=== PATIENT | male | born 1960 | race Caucasian/White ===

== ENCOUNTER 2017-10-23 03:06 | Inpatient (IN) | payer OTHER ==
[2017-10-23] VITALS (8 sets, daily range): BP systolic 89–128; BP diastolic 49–81
[~2017-10-23] VITALS: Ht 177.8 cm; Wt 69.4 kg
--- NOTE | 2017-10-23 03:40 | Emergency Room Report ---
History of Present Illness General Chief Complaint: Altered Level of Consciousness Source: EMS Present Illness HPI This is an approximately 63-year-old male brought in with altered mental status. The question of alcohol abuse. He is sleeping on the street with only is closed. He was shivering. Bystander when she on him and called 911. He was very cold. Unable to get any history. No trauma. He still has his money with him. But no ID. Allergies: Coded Allergies: UNABLE TO ASSESS (Unverified , 10/23/17) patient not answering questions Patient History Past Medical History: see triage record, old chart reviewed Past Surgical History: unable to obtain Pertinent Family History: unable to obtain Immunizations: other Reviewed Nursing Documentation: PMH: Agreed, PSxH: Agreed Nursing Documentation-PMH Past Medical History Deferred: Pt Cognitively Impaired Review of Systems All Other Systems: limited - Patient unable to give a history Physical Exam Vital Signs Date Time Temp Pulse Resp B/P (MAP) Pulse Ox O2 Delivery O2 Flow Rate FiO2 10/23/17 03:02 97.6 120 18 104/57 99 Room Air 97.5 vitals unremarkable except for tachycardia Sp02 EP Interpretation: reviewed, normal General Appearance: well appearing, no apparent distress, lethargic, other - Shivering Head: normocephalic, atraumatic Eyes: bilateral eye PERRL, bilateral eye EOMI ENT: hearing grossly normal, normal pharynx Neck: full range of motion, supple, no meningismus Respiratory: chest non-tender, lungs clear, normal breath sounds Cardiovascular #1: regular rate, rhythm, no murmur, tachycardia, irregularly irregular Gastrointestinal: normal bowel sounds, non tender, no mass, no organomegaly, no bruit, non-distended Musculoskeletal: back normal, normal range of motion Skin: warm/dry Medical Decision Making Diagnostic Impression: Primary Impression: Encephalopathy acute Additional Impressions: Atrial fibrillation with RVR ACS (acute coronary syndrome) ER Course This patient presents with an altered mental status. He has a pacemaker and EKG showed atrial fibrillation with RVR. Controlled with Cardizem. No evidence of heart failure. Trop . CT head is negative. He still very confused after warming up. 1 minute for further workup and possible placement. He has been to previous hospital based on tape martino on his arms. Has no idea or hospital bands however. Laboratory Tests Test 10/23/17 03:30 10/23/17 05:41 White Blood Count 3.8 K/UL (4.8-10.8) L Red Blood Count 4.10 M/UL (4.70-6.10) L Hemoglobin 12.8 G/DL (14.2-18.0) L Hematocrit 37.2 % (42.0-52.0) L Mean Corpuscular Volume 91 FL (80-99) Mean Corpuscular Hemoglobin 31.1 PG (27.0-31.0) H Mean Corpuscular Hemoglobin Concent 34.4 G/DL (32.0-36.0) Red Cell Distribution Width 14.3 % (11.6-14.8) Platelet Count 147 K/UL (150-450) L Mean Platelet Volume 8.1 FL (6.5-10.1) Neutrophils (%) (Auto) 59.5 % (45.0-75.0) Lymphocytes (%) (Auto) 29.5 % (20.0-45.0) Monocytes (%) (Auto) 9.5 % (1.0-10.0) Eosinophils (%) (Auto) 0.4 % (0.0-3.0) Basophils (%) (Auto) 1.1 % (0.0-2.0) Prothrombin Time 13.0 SEC (9.30-11.50) H Prothromb Time International Ratio 1.2 (0.9-1.1) H Sodium Level 140 MMOL/L (136-145) Potassium Level 3.3 MMOL/L (3.5-5.1) L Chloride Level 105 MMOL/L (98-107) Carbon Dioxide Level 24 MMOL/L (21-32) Anion Gap 12 mmol/L (5-15) Blood Urea Nitrogen 25 mg/dL (7-18) H Creatinine 1.5 MG/DL (0.55-1.30) H Estimat Glomerular Filtration Rate 47.0 mL/min (>60) Glucose Level 95 MG/DL (74-106) Calcium Level 8.6 MG/DL (8.5-10.1) Troponin I 0.440 ng/mL (0.000-0.056) Serum Alcohol < 3 mg/dL Urine Color Brown Urine Appearance Clear Urine pH 6 (4.5-8.0) Urine Specific [place] 1.020 (1.005-1.035) Urine Protein 1+ (NEGATIVE) H Urine Glucose (UA) Negative (NEGATIVE) Urine Ketones 1+ (NEGATIVE) H Urine Occult Blood Negative (NEGATIVE) Urine Nitrite Negative (NEGATIVE) Urine Bilirubin Negative (NEGATIVE) Urine Urobilinogen 4 MG/DL (0.0-1.0) H Urine Leukocyte Esterase Negative (NEGATIVE) Urine RBC 0-2 /HPF (0 - 0) H Urine WBC 0-2 /HPF (0 - 0) Urine Squamous Epithelial Cells Occasional /LPF Urine Bacteria Occasional /HPF (NONE) Urine Opiates Screen Negative (NEGATIVE) Urine Barbiturates Screen Negative (NEGATIVE) Phencyclidine (PCP) Screen Negative (NEGATIVE) Urine Amphetamines Screen Negative (NEGATIVE) Urine Benzodiazepines Screen Negative (NEGATIVE) Urine Cocaine Screen Negative (NEGATIVE) Urine Marijuana (THC) Screen Negative (NEGATIVE) Lab Results Impression labs with elevated trop EKG Diagnostic Results Rate: tachycardiac Rhythm: other - A. fib ST Segments: other - Nonspecific changes Rhythm Strip Diag. Results Rhythm Strip Time: 05:41 EP Interpretation: yes Rate: 111 Rhythm: no PVC's, no ectopy, other - A. fib Chest X-Ray Diagnostic Results Chest X-Ray Diagnostic Results : Chest X-Ray Ordered: Yes # of Views/Limited/Complete: 1 View Indication: Chest Pain EP Interpretation: Yes Interpretation: no consolidation, no effusion, no pneumothorax, no acute cardiopulmonary disease, other - cardiomegaly Impression: No acute disease Electronically Signed by: Rafi Kelly MD CT/MRI/US Diagnostic Results CT/MRI/US Diagnostic Results : Imaging Test Ordered: CT head Impression negative per radiologist Last Vital Signs Date Time Temp Pulse Resp B/P (MAP) Pulse Ox O2 Delivery O2 Flow Rate FiO2 10/23/17 03:15 97.5 18 104/57 99 Room Air 97.5 10/23/17 03:02 120 Status: improved Disposition: ADMITTED INPATIENT Condition: Serious Scripts Unable to Obtain Active Prescriptions or Reported Meds RAFI KELLY M.D. Oct 23, 2017 03:40
[2017-10-23 03:46] LABS: BASOPHILS % (AUTO) 1.1 % (0.0-2.0); EOSINOPHILS % (AUTO) 0.4 % (0.0-3.0); HEMATOCRIT 37.2 % (42.0-52.0); HEMOGLOBIN 12.8 G/DL (14.2-18.0); LYMPHOCYTES % (AUTO) 29.5 % (20.0-45.0); MEAN CORPUSCULAR VOLUME 91 FL (80-99); MONOCYTES % (AUTO) 9.5 % (1.0-10.0); NEUTROPHILS % (AUTO) 59.5 % (45.0-75.0); PLATELET COUNT 147 K/UL (150-450); RED CELL DISTRIBUTION WIDTH 14.3 % (11.6-14.8); WHITE BLOOD COUNT 3.8 K/UL (4.8-10.8)
[2017-10-23 03:55] LABS: ANION GAP 12 mmol/L (5-15); BLOOD UREA NITROGEN 25 mg/dL (7-18); CALCIUM 8.6 MG/DL (8.5-10.1); CARBON DIOXIDE 24 MMOL/L (21-32); CHLORIDE 105 MMOL/L (98-107); CREATININE 1.5 MG/DL (0.55-1.30); POTASSIUM 3.3 MMOL/L (3.5-5.1); SODIUM 140 MMOL/L (136-145)
[2017-10-23] MEDS ORDERED: Haloperidol 5mg/ml Inj IM ONE (05:15)
[2017-10-23] MEDS ORDERED: dilTIAZem HCl 25mg/5ml Inj IVP ONE ×2 (05:45→06:30)
[2017-10-23 05:57] LABS: BILIRUBIN, URINE NEGATIVE (NEGATIVE); COLOR,URINE BROWN; GLUCOSE, URINE (UA) NEGATIVE (NEGATIVE); KETONES,URINE 1+ (NEGATIVE); LEUKOCYTE ESTERASE ,URINE NEGATIVE (NEGATIVE); NITRITE,URINE NEGATIVE (NEGATIVE); PH,URINE 6 (4.5-8.0); PROTEIN,URINE 1+ (NEGATIVE); UROBILINOGEN,URINE 4 MG/DL (0.0-1.0)
[2017-10-23 05:57] LABS: INR 1.2 (0.9-1.1)
[2017-10-23 05:58] LABS: APPEARANCE,URINE CLEAR
[2017-10-23] MEDS ORDERED: Aspirin Baby 81mg ORAL ONE (06:30)
[2017-10-23] MEDS ORDERED: Enoxaparin 100mg Inj SUBQ ONE (06:30)
[2017-10-23] MEDS ORDERED: NS 250 ML IVPB ONE (07:15)
[2017-10-23] MEDS ORDERED: Sodium Chloride 500ML 250 ML IV ONE (07:45)
--- NOTE | 2017-10-23 07:52 | Diagnostic Imaging Report ---
Indication: Altered mental status Technique: Continuous helical CT scanning of the head was performed without intravenous contrast material. Axial and coronal 5 mm sections were generated. Dose: Total Dose Length Product - DLP [address] Dose Index - CTDIvol(s) 70.38 mGy. Automated exposure control was utilized for dose reduction. Comparison: None Findings: The ventricles are normal. There is minimal prominence of cortical sulci. Focal area of low density is noted in the left thalamus. There is no shift of midline structures. No abnormal extra-axial fluid collections are noted. There is no evidence of intracerebral bleeding. No other abnormal high or low density areas are noted within the brain. Has been cataract surgery on the left side. Impression: Minimal cortical atrophy. Old lacunar infarct in the left thalamus. Evidence of left cataract surgery. No acute abnormality. The above report is concordant with preliminary reading by [facility] with nonacute difference.. The CT scanner at [facility] is accredited by the [employer] and the scans are performed using protocols designed to limit radiation exposure to as low as reasonably achievable to attain images of sufficient resolution adequate for diagnostic evaluation.
[2017-10-23] MEDS ORDERED: Potassium Chloride 10 MEQ in NS 110 ML IVPB SCH (08:00)
[2017-10-23] MEDS ORDERED: Digoxin 0.5mg/2ml Inj IVP ONE (08:00)
--- NOTE | 2017-10-23 08:32 | Diagnostic Imaging Report ---
Indication: Chest pain Technique: XRAY Chest 1v Comparison:None Findings: The heart appears enlarged. There is a pacemaker. Pulmonary vascularity is mildly prominent. No pleural fluid. Osseous structures are unremarkable. Impression: Pacemaker. Cardiomegaly. Mild prominence of pulmonary vascularity. Possibility of mild congestive heart failure should be considered.
--- NOTE | 2017-10-23 08:49 | History & Physical ---
History and Physical History & Physicial 63 year old male found on the street. noted to have sinus tachycardia PMH unknown MEDS unknown ALLERGIES unknown PHYSICAL WDWN NAD clear breath sounds bilaterally without rhonchi or wheeze S1S2RR tachy without MRG NABS nontender no HSM no CCE nonfocal Laboratory Tests Test 10/23/17 03:30 10/23/17 05:41 White Blood Count 3.8 K/UL (4.8-10.8) L Red Blood Count 4.10 M/UL (4.70-6.10) L Hemoglobin 12.8 G/DL (14.2-18.0) L Hematocrit 37.2 % (42.0-52.0) L Mean Corpuscular Volume 91 FL (80-99) Mean Corpuscular Hemoglobin 31.1 PG (27.0-31.0) H Mean Corpuscular Hemoglobin Concent 34.4 G/DL (32.0-36.0) Red Cell Distribution Width 14.3 % (11.6-14.8) Platelet Count 147 K/UL (150-450) L Mean Platelet Volume 8.1 FL (6.5-10.1) Neutrophils (%) (Auto) 59.5 % (45.0-75.0) Lymphocytes (%) (Auto) 29.5 % (20.0-45.0) Monocytes (%) (Auto) 9.5 % (1.0-10.0) Eosinophils (%) (Auto) 0.4 % (0.0-3.0) Basophils (%) (Auto) 1.1 % (0.0-2.0) Prothrombin Time 13.0 SEC (9.30-11.50) H Prothromb Time International Ratio 1.2 (0.9-1.1) H Sodium Level 140 MMOL/L (136-145) Potassium Level 3.3 MMOL/L (3.5-5.1) L Chloride Level 105 MMOL/L (98-107) Carbon Dioxide Level 24 MMOL/L (21-32) Anion Gap 12 mmol/L (5-15) Blood Urea Nitrogen 25 mg/dL (7-18) H Creatinine 1.5 MG/DL (0.55-1.30) H Estimat Glomerular Filtration Rate 47.0 mL/min (>60) Glucose Level 95 MG/DL (74-106) Calcium Level 8.6 MG/DL (8.5-10.1) Troponin I 0.440 ng/mL (0.000-0.056) Serum Alcohol < 3 mg/dL Urine Color Brown Urine Appearance Clear Urine pH 6 (4.5-8.0) Urine Specific [place] 1.020 (1.005-1.035) Urine Protein 1+ (NEGATIVE) H Urine Glucose (UA) Negative (NEGATIVE) Urine Ketones 1+ (NEGATIVE) H Urine Occult Blood Negative (NEGATIVE) Urine Nitrite Negative (NEGATIVE) Urine Bilirubin Negative (NEGATIVE) Urine Urobilinogen 4 MG/DL (0.0-1.0) H Urine Leukocyte Esterase Negative (NEGATIVE) Urine RBC 0-2 /HPF (0 - 0) H Urine WBC 0-2 /HPF (0 - 0) Urine Squamous Epithelial Cells Occasional /LPF Urine Bacteria Occasional /HPF (NONE) Urine Opiates Screen Negative (NEGATIVE) Urine Barbiturates Screen Negative (NEGATIVE) Phencyclidine (PCP) Screen Negative (NEGATIVE) Urine Amphetamines Screen Negative (NEGATIVE) Urine Benzodiazepines Screen Negative (NEGATIVE) Urine Cocaine Screen Negative (NEGATIVE) Urine Marijuana (THC) Screen Negative (NEGATIVE) IMPRESSION lacunar infarcts acute encephalopathy PLAN PT evaluation hydration dc planning FRANCINE SANDOVAL Oct 23, 2017 08:49
[2017-10-23] MEDS: dilTIAZem HCl 30mg tab ORAL SCH (19:57)
[2017-10-23] MEDS: Heparin 5000 units/ml inj SUBQ SCH (21:00)
[2017-10-24] VITALS: BP 117/65
[2017-10-24 04:00] VITALS: BP 129/89
--- NOTE | 2017-10-24 07:35 | General Progress Note ---
Assessment/Plan Assessment/Plan acute encephalopathy afib with RVR elevated troponin PLAN awaiting further history patient recently in the hospital need further medical history and med list prior to safe discharge Subjective Allergies: Coded Allergies: UNABLE TO ASSESS (Unverified , 10/23/17) patient not answering questions Subjective not fully able to give history Objective Last 24 Hour Vital Signs Date Time Temp Pulse Resp B/P (MAP) Pulse Ox O2 Delivery O2 Flow Rate FiO2 10/24/17 04:00 128 10/24/17 04:00 97.3 90 20 129/89 98 Room Air 97.3 10/24/17 00:00 98.2 65 20 117/65 99 Room Air 98.2 10/24/17 00:00 81 10/23/17 20:00 106 10/23/17 20:00 98.9 104 21 119/81 99 Room Air 98.9 10/23/17 19:57 104 119/81 10/23/17 16:00 97.5 109 20 128/74 100 Room Air 97.5 10/23/17 16:00 162 10/23/17 12:00 102 20 107/76 99 Room Air 10/23/17 12:00 92 10/23/17 09:30 81 18 92/71 100 Room Air 10/23/17 09:26 75 10/23/17 09:24 97.5 99 14 106/54 100 Room Air 97.5 10/23/17 07:52 99 14 106/54 100 Room Air Intake and Output 10/23/17 10/24/17 19:00 07:00 Intake Total 490 ml 675 ml Balance 490 ml 675 ml Intake Oral 490 ml IV Total 675 ml Height (Feet): 5 Height (Inches): 10.00 Weight (Pounds): 153 Objective WDWN NAD clear breath sounds bilaterally without rhonchi or wheeze S1S2 iRR intermittently tachy without MRG NABS nontender no HSM no CCE nonfocal FRANCINE SANDOVAL Oct 24, 2017 07:35
[2017-10-24 08:00] VITALS: BP 148/97
[2017-10-24 08:15] LABS: BASOPHILS % (AUTO) 1.3 % (0.0-2.0); EOSINOPHILS % (AUTO) 2.5 % (0.0-3.0); HEMATOCRIT 34.3 % (42.0-52.0); HEMOGLOBIN 11.9 G/DL (14.2-18.0); MEAN CORPUSCULAR VOLUME 92 FL (80-99); MONOCYTES % (AUTO) 16.3 % (1.0-10.0); PLATELET COUNT 145 K/UL (150-450); RED BLOOD COUNT 3.74 M/UL (4.70-6.10); RED CELL DISTRIBUTION WIDTH 14.3 % (11.6-14.8); WHITE BLOOD COUNT 3.8 K/UL (4.8-10.8)
[2017-10-24 08:22] LABS: ANION GAP 7 mmol/L (5-15); BLOOD UREA NITROGEN 13 mg/dL (7-18); CALCIUM 8.2 MG/DL (8.5-10.1); CARBON DIOXIDE 25 MMOL/L (21-32); CHLORIDE 110 MMOL/L (98-107); CREATININE 1.2 MG/DL (0.55-1.30); POTASSIUM 3.2 MMOL/L (3.5-5.1); SODIUM 142 MMOL/L (136-145)
[2017-10-24] MEDS: Heparin 5000 units/ml inj SUBQ SCH ×2 (09:00→20:51)
[2017-10-24] MEDS: dilTIAZem HCl 30mg tab ORAL SCH ×3 (09:18→17:42)
[2017-10-24 12:00] VITALS: BP 132/86
--- NOTE | 2017-10-24 14:42 | Cardiology Report ---
APPROVED REPORT EXAM: Two-dimensional and M-mode echocardiogram with Doppler and color Doppler. INDICATION ALTERED LOC M-Mode DIMENSIONS IVSd1.2 (0.7-1.1cm)Left Atrium (MM)4.2 (1.6-4.0cm) LVDd4.2 (3.5-5.6cm)Aortic Root4.2 (2.0-3.7cm) PWd1.4 (0.7-1.1cm)Aortic Cusp Exc.2.4 (1.5-2.0cm) IVSs1.6 cm LVDs3.3 (2.5-4.0cm) PWs1.4 cm Mild left ventricular chamber size enlargement . Global left ventricular hypokinesis. Left ventricular ejection fraction estimated to be 30-35 %. Mild left ventricular hypertrophy. No evidence of pericardial effusion. Mild bi-Atrial enlargements . Right ventricular chamber sizes is within normal limits. Focal aortic valve sclerosis with adequate cusp excursion. Thickened mitral valve leaflets with normal excursion. Mitral annulus and aortic root calcification. Pulmonic valve not well visualized. Normal tricuspid valve structure. IVC dilated at 3.6 cm and non-collapsing with respiration suggestive of increased RA pressure. Pacemaker wire present in the right side chambers. A color flow and spectral Doppler study was performed and revealed: Mild aortic insufficiency. Mild to moderate mitral regurgitation . Mild tricuspid regurgitation. Tricuspid systolic velocities suggests peak right ventricular systolic pressure of 70 mmHg, consistent with severe pulmonary hypertension. No Pulmonic regurgitation present
[2017-10-24 16:00] VITALS: BP 128/84
--- NOTE | 2017-10-24 16:48 | History & Physical ---
History and Physical History & Physicial Patient seen and examined. Full H&P to follow. CT head negative. LP negative. Assessment: - septic shock with multiorgan failure - altered mental status - pediculosis capitus - UTI - homelessness Plan: ID and cardiology consulted. Pulmonology consulted for ICU management. continue IV abx f/u blood cultures, urine culture. continue IVF, maintain MAP > 65. pressors/ albumin prn. Transfer to ICU. keep in isolation. Deandra Stern N.P. Oct 24, 2017 16:47
[2017-10-24 20:00] VITALS: BP 114/74
[2017-10-25] VITALS: BP 118/74
[2017-10-25 04:00] VITALS: BP 130/87
[2017-10-25 08:00] VITALS: BP 139/83
--- NOTE | 2017-10-25 08:04 | General Progress Note ---
Assessment/Plan Assessment/Plan acute encephalopathy afib with RVR elevated troponin cardiomyopathy pacemaker PLAN awaiting further history and details still not sure as to status patient recently in the hospital need further medical history and med list prior to safe discharge Subjective Allergies: Coded Allergies: UNABLE TO ASSESS (Unverified , 10/23/17) patient not answering questions Subjective still confused Objective Last 24 Hour Vital Signs Date Time Temp Pulse Resp B/P (MAP) Pulse Ox O2 Delivery O2 Flow Rate FiO2 10/25/17 04:00 97.7 84 20 130/87 95 Room Air 97.7 10/25/17 04:00 81 10/25/17 00:00 78 10/25/17 00:00 97.7 78 20 118/74 95 Room Air 97.7 10/24/17 20:00 77 10/24/17 20:00 97.9 66 18 114/74 98 Room Air 97.9 10/24/17 17:42 91 128/84 10/24/17 16:00 111 10/24/17 16:00 96.9 91 20 128/84 99 Room Air 96.9 10/24/17 12:17 80 132/86 10/24/17 12:00 97.0 80 20 132/86 100 Room Air 97.0 10/24/17 12:00 91 10/24/17 09:18 129 148/97 Intake and Output 10/24/17 10/25/17 19:00 07:00 Intake Total 1630 ml 1175 ml Output Total 525 ml Balance 1630 ml 650 ml Intake Oral 730 ml 500 ml IV Total 900 ml 675 ml Output Urine Total 525 ml # Voids 5 Height (Feet): 5 Height (Inches): 10.00 Weight (Pounds): 153 Objective WDWN NAD clear breath sounds bilaterally without rhonchi or wheeze S1S2 iRR intermittently tachy without MRG NABS nontender no HSM no CCE nonfocal FRANCINE SANDOVAL Oct 25, 2017 08:03
[2017-10-25] MEDS: dilTIAZem HCl 30mg tab ORAL SCH ×3 (08:57→17:20)
[2017-10-25] MEDS: Heparin 5000 units/ml inj SUBQ SCH ×2 (08:57→21:32)
[2017-10-25 12:00] VITALS: BP 132/76
--- NOTE | 2017-10-25 15:49 | Wound Care Consultation ---
Wound Assessment Wound Assessment : Wound Number: 1 Wound Present on Admission: Yes New Wound: No Status Change of Wound: No Wound Location Body Site Modif: right, lateral Wound Location Body Site: malleolus/ankle Wound Type: other - open wound etiology unknown Demi Test: Does not Demi Wound Thickness: Partial Thickness Wound Length: 1.0 Wound Width: 1.0 Wound Depth: 0.2 Percent of Wound [place]/Red: 50 Percent of Wound Purple/Maroon: 50 Wound Drainage Description: Serosanguineous Wound Drainage Amount: Scant Wound Drainage Odor: None/Absent Tissue Surrounding Wound: Erythemic Wound General Appearance: Reddened Wound Comment #1 right lateral malleolus open wound -etiology unknown. #2 right buttock intact nodule. Recommendation. -Local wound care as ordered. -Offload affected site. -Avoid shear and friction. -Turn and reposition. -Keep clean and dry. -Asses for any skin changes to nodule. -Assess and follow up accordingly if any further change of condition is noted. patient stated does not know where wound on right ankle came from its been there for many years. MOE TERRY Oct 25, 2017 15:49
[2017-10-25 16:00] VITALS: BP 125/81
[2017-10-25 20:00] VITALS: BP 122/76
[2017-10-26] VITALS: BP 118/77
[2017-10-26 04:00] VITALS: BP 134/90
--- NOTE | 2017-10-26 07:54 | General Progress Note ---
Assessment/Plan Assessment/Plan acute encephalopathy afib with RVR elevated troponin cardiomyopathy pacemaker cardiomyopathy PLAN neuro called not safe for anticoag add aspirin only patient recently in the hospital CM to assist with disposition Subjective Allergies: Coded Allergies: UNABLE TO ASSESS (Unverified , 10/23/17) patient not answering questions Subjective somewhat confused Objective Last 24 Hour Vital Signs Date Time Temp Pulse Resp B/P (MAP) Pulse Ox O2 Delivery O2 Flow Rate FiO2 10/26/17 04:00 97.9 83 18 134/90 97 Room Air 97.9 10/26/17 04:00 93 10/26/17 00:00 70 10/26/17 00:00 97.0 72 19 118/77 96 Room Air 97.0 10/25/17 20:00 85 10/25/17 20:00 97.5 89 18 122/76 98 Room Air 97.5 10/25/17 17:20 80 125/81 10/25/17 16:00 97.0 80 19 125/81 97 Room Air 97.0 10/25/17 16:00 88 10/25/17 12:35 98 132/76 10/25/17 12:00 97.5 98 22 132/76 97 Room Air 97.5 10/25/17 12:00 119 10/25/17 08:57 53 139/83 10/25/17 08:00 145 10/25/17 08:00 97.8 53 21 139/83 97 Room Air 97.8 Intake and Output 10/25/17 10/26/17 19:00 07:00 Intake Total 1700 ml 825 ml Output Total 700 ml 500 ml Balance 1000 ml 325 ml Intake Oral 1100 ml IV Total 600 ml 825 ml Output Urine Total 700 ml 500 ml # Voids 2 Labs Test 10/24/17 07:20 White Blood Count 3.8 K/UL (4.8-10.8) Red Blood Count 3.74 M/UL (4.70-6.10) Hemoglobin 11.9 G/DL (14.2-18.0) Hematocrit 34.3 % (42.0-52.0) Mean Corpuscular Volume 92 FL (80-99) Mean Corpuscular Hemoglobin 31.9 PG (27.0-31.0) Mean Corpuscular Hemoglobin Concent 34.8 G/DL (32.0-36.0) Red Cell Distribution Width 14.3 % (11.6-14.8) Platelet Count 145 K/UL (150-450) Mean Platelet Volume 9.3 FL (6.5-10.1) Neutrophils (%) (Auto) 29.0 % (45.0-75.0) Lymphocytes (%) (Auto) 51.0 % (20.0-45.0) Monocytes (%) (Auto) 16.3 % (1.0-10.0) Eosinophils (%) (Auto) 2.5 % (0.0-3.0) Basophils (%) (Auto) 1.3 % (0.0-2.0) Sodium Level 142 MMOL/L (136-145) Potassium Level 3.2 MMOL/L (3.5-5.1) Chloride Level 110 MMOL/L (98-107) Carbon Dioxide Level 25 MMOL/L (21-32) Anion Gap 7 mmol/L (5-15) Blood Urea Nitrogen 13 mg/dL (7-18) Creatinine 1.2 MG/DL (0.55-1.30) Estimat Glomerular Filtration Rate > 60 mL/min (>60) Glucose Level 80 MG/DL (74-106) Calcium Level 8.2 MG/DL (8.5-10.1) Troponin I 0.439 ng/mL (0.000-0.056) Height (Feet): 5 Height (Inches): 10.00 Weight (Pounds): 153 Objective WDWN NAD clear breath sounds bilaterally without rhonchi or wheeze S1S2 iRR without MRG NABS nontender no HSM no CCE nonfocal FRANCINE SANDOVAL Oct 26, 2017 07:54
[2017-10-26 08:00] VITALS: BP 135/73
[2017-10-26] MEDS: Aspirin EC 81mg tab ORAL SCH (09:05)
[2017-10-26] MEDS: Heparin 5000 units/ml inj SUBQ SCH ×2 (09:07→20:21)
[2017-10-26] MEDS: dilTIAZem HCl 30mg tab ORAL SCH ×3 (09:08→17:38)
[2017-10-26 09:42] LABS: ANION GAP 6 mmol/L (5-15); BLOOD UREA NITROGEN 12 mg/dL (7-18); CALCIUM 8.7 MG/DL (8.5-10.1); CARBON DIOXIDE 27 MMOL/L (21-32); CHLORIDE 109 MMOL/L (98-107); CREATININE 1.1 MG/DL (0.55-1.30); POTASSIUM 3.4 MMOL/L (3.5-5.1); SODIUM 142 MMOL/L (136-145)
[2017-10-26 12:00] VITALS: BP 117/77
[2017-10-26] MEDS: Digoxin 0.125mg tab ORAL SCH ×2 (15:57→17:38)
[2017-10-26 16:00] VITALS: BP 147/76
--- NOTE | 2017-10-26 19:45 | Progress Note ---
DATE: 10/26/2017 SUBJECTIVE: The patient is more alert and oriented, however, he is still confused, disorganized, and has cognitive impairment. The patient is still disorganized and delusional. MENTAL STATUS EXAMINATION: The patient is alert and oriented times self, place, and situation. Mood is dysphoric. Affect is constricted. Congruent with mood. Thought process is concrete. Thought content, no suicidal or homicidal ideations. ASSESSMENT: 1. Alcohol dependence. 2. Agitation. PLAN: 1. The patient will be continued on Valium p.r.n. 2. 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 3. The patient is not in an imminent danger to self or others. Not meeting the criteria for 5150 or psychiatric hospitalization. 4. I have dictated History and Physical. Unfortunately, it is not available. Medical records researching. Terrence Rosario M.D. DR: MUSTAPHA JOB#: [id number] CC:
[2017-10-26 20:00] VITALS: BP 113/75
--- NOTE | 2017-10-26 20:29 | Cardiology Progress Note ---
Assessment/Plan Assessment/Plan The patient is seen and examined, full consult note will be dictated shortly. Objective Last 24 Hour Vital Signs Date Time Temp Pulse Resp B/P (MAP) Pulse Ox O2 Delivery O2 Flow Rate FiO2 10/26/17 17:38 119 10/26/17 17:38 119 117/77 10/26/17 16:00 75 10/26/17 16:00 96.8 114 20 147/76 Room Air 96.8 10/26/17 15:57 114 10/26/17 13:31 91 117/77 10/26/17 12:00 97.2 91 20 117/77 100 Room Air 97.2 10/26/17 12:00 150 10/26/17 09:08 84 135/73 10/26/17 08:00 98.4 84 20 135/73 97 Room Air 98.4 10/26/17 08:00 108 10/26/17 04:00 97.9 83 18 134/90 97 Room Air 97.9 10/26/17 04:00 93 10/26/17 00:00 70 10/26/17 00:00 97.0 72 19 118/77 96 Room Air 97.0 Intake and Output 10/25/17 10/26/17 19:00 07:00 Intake Total 1700 ml 825 ml Output Total 700 ml 500 ml Balance 1000 ml 325 ml Intake Oral 1100 ml IV Total 600 ml 825 ml Output Urine Total 700 ml 500 ml # Voids 2 Laboratory Tests Test 10/26/17 08:50 Sodium Level 142 MMOL/L (136-145) Potassium Level 3.4 MMOL/L (3.5-5.1) L Chloride Level 109 MMOL/L (98-107) H Carbon Dioxide Level 27 MMOL/L (21-32) Anion Gap 6 mmol/L (5-15) Blood Urea Nitrogen 12 mg/dL (7-18) Creatinine 1.1 MG/DL (0.55-1.30) Estimat Glomerular Filtration Rate > 60 mL/min (>60) Glucose Level 150 MG/DL (74-106) H Calcium Level 8.7 MG/DL (8.5-10.1) Troponin I 0.355 ng/mL (0.000-0.056) DEEDEE CASTANON Oct 26, 2017 20:29
[2017-10-27] VITALS: BP 113/79
[2017-10-27 04:00] VITALS: BP 141/96
[2017-10-27] MEDS: dilTIAZem HCl 60mg tab ORAL SCH ×3 (06:22→22:05)
--- NOTE | 2017-10-27 06:53 | General Progress Note ---
Assessment/Plan Assessment/Plan acute encephalopathy afib with RVR elevated troponin cardiomyopathy pacemaker cardiomyopathy PLAN neuro called not safe for anticoag Aspirin only CM to assist with disposition Subjective Allergies: Coded Allergies: UNABLE TO ASSESS (Unverified , 10/23/17) patient not answering questions Subjective still confused Objective Last 24 Hour Vital Signs Date Time Temp Pulse Resp B/P (MAP) Pulse Ox O2 Delivery O2 Flow Rate FiO2 10/27/17 06:22 70 141/96 10/27/17 04:00 70 10/27/17 04:00 98.2 76 21 141/96 98 98.2 10/27/17 00:00 98.1 77 20 113/79 97 Room Air 98.1 10/27/17 00:00 98 10/26/17 20:00 97.7 78 20 113/75 100 Room Air 97.7 10/26/17 20:00 91 10/26/17 17:38 119 10/26/17 17:38 119 117/77 10/26/17 16:00 75 10/26/17 16:00 96.8 114 20 147/76 Room Air 96.8 10/26/17 15:57 114 10/26/17 13:31 91 117/77 10/26/17 12:00 97.2 91 20 117/77 100 Room Air 97.2 10/26/17 12:00 150 10/26/17 09:08 84 135/73 10/26/17 08:00 98.4 84 20 135/73 97 Room Air 98.4 10/26/17 08:00 108 Intake and Output 10/26/17 10/27/17 19:00 07:00 Intake Total 880 ml 220 ml Output Total 900 ml 1300 ml Balance -20 ml -1080 ml Intake Oral 880 ml 220 ml Output Urine Total 900 ml 1300 ml Laboratory Tests 10/26/17 08:50: Sodium Level 142, Potassium Level 3.4L, Chloride Level 109H, Carbon Dioxide Level 27, Anion Gap 6, Blood Urea Nitrogen 12, Creatinine 1.1, Estimat Glomerular Filtration Rate > 60, Glucose Level 150H, Calcium Level 8.7, Troponin I 0.355H Height (Feet): 5 Height (Inches): 10.00 Weight (Pounds): 153 Objective WDWN NAD clear breath sounds bilaterally without rhonchi or wheeze S1S2 iRR without MRG NABS nontender no HSM no CCE nonfocal FRANCINE SANDOVAL Oct 27, 2017 06:53
[2017-10-27 08:00] VITALS: BP 101/57
[2017-10-27] MEDS: Aspirin EC 81mg tab ORAL SCH (10:02)
[2017-10-27] MEDS: Heparin 5000 units/ml inj SUBQ SCH ×2 (10:07→22:04)
--- NOTE | 2017-10-27 11:46 | Neurology Progress Note ---
Objective Physical Exam Last Vital Signs Date Time Temp Pulse Resp B/P (MAP) Pulse Ox O2 Delivery O2 Flow Rate FiO2 10/27/17 08:00 97.1 59 18 101/57 99 97.1 10/27/17 00:00 Room Air Impression/Recommendations Problems: (1) vertigo, confusion, r/o tia r/o labyrintitis (2) Atrial fibrillation with RVR Status: stable Recommendations #[id number] KRISTI GARCIA Oct 27, 2017 11:46
[2017-10-27 12:00] VITALS: BP 121/72
[2017-10-27 12:58] LABS: ALANINE AMINOTRANSFERASE 34 U/L (12-78); ALBUMIN/GLOBULIN RATIO 0.6 (1.0-2.7); ALKALINE PHOSPHATASE 93 U/L (46-116); CALCIUM 8.3 MG/DL (8.5-10.1); CHLORIDE 109 MMOL/L (98-107); HDL CHOLESTEROL 44 MG/DL (40-60); SODIUM 142 MMOL/L (136-145)
[2017-10-27 13:00] LABS: ANION GAP 6 mmol/L (5-15); ASPARTATE AMINO TRANSFERASE 48 U/L (15-37); BILIRUBIN,TOTAL 1.3 MG/DL (0.2-1.0); BLOOD UREA NITROGEN 12 mg/dL (7-18); CARBON DIOXIDE 27 MMOL/L (21-32); CHOLESTEROL 122 MG/DL (< 200); CREATININE 1.1 MG/DL (0.55-1.30); POTASSIUM 3.8 MMOL/L (3.5-5.1); TRIGLYCERIDES < 15 MG/DL (30-150)
[2017-10-27 13:13] LABS: BILIRUBIN,DIRECT 0.7 MG/DL (0.0-0.3)
[2017-10-27] MEDS: Thiamine 100mg tab ORAL SCH (13:51)
[2017-10-27 16:00] VITALS: BP 103/66
--- NOTE | 2017-10-27 18:32 | Consultation ---
DATE OF CONSULTATION: 10/27/2017 NEUROLOGICAL CONSULTATION CONSULTING PHYSICIAN: Angel Barrios M.D. REQUESTING PHYSICIAN: Jeffrey Ac M.D. HISTORY OF PRESENT ILLNESS: This 56-year-old man seen in neurological consultation to evaluate a new onset of changes in mental status. 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 Did know what the time and direction. He estimated being in this condition roughly seven hours. On admission, there was a description that he is sleeping on the street, he was shivering. He was found by a bystander confused, and he called 911. The patient felt very very cold. His vital signs included temperature of 97.6 degrees, heart rate of 120, blood pressure 104/57. There was no evidence of trauma noted. He was confused. EKG revealed presence of atrial fibrillation with rapid ventricular rate. This was controlled with Cardizem. There was no evidence of CHF on troponins. He was "very confused." There were tape martino on his arms, evidence of being recent hospitalization. His initial workup included lab work with evidence of anemia, WBC 3.8, hemoglobin 12.8, hematocrit 37.2, and platelet 147,000. Coagulation panel with INR 1.2. Urinalysis, 1+ ketones and 1+ protein. Toxicology panel was negative. Chemistry panel with BUN of 25 and creatinine 1.5 and potassium 3.3 with elevated troponin 0.440. Following admission, his condition stabilized. He is maintained on aspirin and IV fluids. He was given p.r.n. Valium for agitation, Digoxin, Cardizem, and subcutaneous heparin. Imaging studies included CT scan of the brain, which revealed minimal cortical atrophy, old lacunar infarct in the left thalamus. There is evidence of left cataract surgery, but no evidence of acute intracranial abnormalities. Chest x-ray, mild CHF. A 2D echocardiogram revealed global left ventricular hypokinesis and ejection fraction 30-35% and severe pulmonary hypertension. The patient displayed no further orthostatics. PAST MEDICAL HISTORY: The patient has a history of cardiac arrhythmia. He is on pacemaker. He is unaware of having other medical issues. He takes "medicine for heart", but unable to name them. A psychiatry assessment was obtained, him being confused, disorganized with cognitive impairment, still delusional. He was diagnosed with alcohol dependence and agitation. FAMILY HISTORY: Unavailable. SOCIAL HISTORY: The patient indicating he lives with his two sisters, and gives current address. He indicated that he was drinking before, but the last drink was 4 years ago. He is nonsmoker. No drug abuse. He worked as a fast food server. REVIEW OF SYMPTOMS: Currently feels "slightly dizzy" indicating "because I'm in bed for four days." He is asking when he will be discharged. He denies chest pain or palpitations. No respiratory problems. Denies abdominal pain or discomfort. No urine or bowel incontinence. PHYSICAL EXAMINATION: GENERAL: This is a well-developed, well-nourished man, not in acute distress, lying comfortably in bed. VITAL SIGNS: Now stabilized, blood pressure 101/57, temperature 97.1 degrees, and heart rate of 59. HEENT: Head, normocephalic. No evidence of injuries. Eyes, ears, and throat are clear. NECK: Supple. No meningeal signs. MUSCULOSKELETAL: Unremarkable except puffiness of both lower extremities. Peripheral pulses 1+ and symmetric. MENTAL STATUS: The patient is alert and oriented to his name, age, year, and address. He is still a poor historian. Unable to provide with proper medical history. He looks coherent, follows commands, but speaks predominantly Lebanese and interview was obtained with the help of Lebanese-speaking personnel. CRANIAL NERVE II: Pupils both responding to light and accommodation. Extraocular movements intact. No nystagmus. CRANIAL NERVE V: Normal corneal responses. CRANIAL NERVE VII: No facial asymmetry. CRANIAL NERVE VIII: Normal hearing. CRANIAL NERVE IX THROUGH XII: Tongue is in midline. Symmetric palate elevation. MOTOR EXAMINATION: Normal muscle tone. Strength 5/5 in all extremities. No involuntary movement. Deep tendon reflexes 1+ and symmetric with downgoing toes on both sides. SENSORY EXAMINATION: Normal to pinprick and light touch. GAIT: Slow, somewhat wobbly. IMPRESSION: 1. History of transient episode of vertigo and confusional state. Rule out acute labyrinthitis. Rule out transient ischemic attack, posterior circulation and anterior circulation. 2. Congestive heart failure. 3. Atrial fibrillation with rapid ventricular response. 4. Pacemaker. 5. Cardiomyopathy. 6. Congestive heart failure. RECOMMENDATIONS: 1. Recheck carotid duplex, rule out DVT of lower extremities. 2. Get a venous duplex of both lower extremities. 3. Continue with aspirin. 4. Check B12, folate, thyroid function, DIONISIO, sedimentation rate, and lipid panel. 5. PT/OT for mobility protocol, up in a chair. Thank you for allowing me to see this interesting patient in neurological consultation. Angel Barb Barrios. DR: MARSHA JOB#: [id number] CC:
--- NOTE | 2017-10-27 19:01 | Progress Note ---
DATE: 10/27/2017 SUBJECTIVE: The patient is still not able to be fully engaged due to primary impairment and being confused. He is Maltese speaking. He has impairment of concentration, memory, and attention most likely due to alcohol. The patient still has been aggressive, however in the hospital, he is being calm. The patient has episodes of anxiety. He is being ordered Valium for alcohol withdrawal. MENTAL STATUS EXAMINATION: The patient is alert and oriented times self and place. Mood is neutral. Affect is flat. Thought process, there is a paucity of thought content. Thought content, no suicidal or homicidal ideations. ASSESSMENT: 1. Cognitive impairment versus dementia due to alcohol dependence. 2. Alcohol dependence. 3. Depression. PLAN: 1. We will start the patient on Zyprexa 5 mg at bedtime. 2. Prozac 20 mg in the morning. 3. We will continue to follow and readjust the medications. Terrence Rosario M.D. DR: MUSTAPHA JOB#: [id number] CC:
[2017-10-27 20:00] VITALS: BP 118/77
[2017-10-28] VITALS (7 sets, daily range): BP systolic 101–128; BP diastolic 58–92
--- NOTE | 2017-10-28 05:58 | General Progress Note ---
Assessment/Plan Assessment/Plan acute encephalopathy afib elevated troponin cardiomyopathy pacemaker cardiomyopathy vertigo PLAN neuro noted not safe for anticoag Aspirin only rate control CM to assist with disposition Subjective Allergies: Coded Allergies: UNABLE TO ASSESS (Unverified , 10/23/17) patient not answering questions Subjective somewhat confused Objective Last 24 Hour Vital Signs Date Time Temp Pulse Resp B/P (MAP) Pulse Ox O2 Delivery O2 Flow Rate FiO2 10/28/17 04:00 70 10/28/17 04:00 97.0 78 17 116/74 99 97.0 10/28/17 04:00 97.0 78 17 116/74 99 97.0 10/28/17 00:00 98.2 80 20 118/92 98 98.2 10/28/17 00:00 76 10/27/17 22:05 77 118/77 10/27/17 20:00 72 10/27/17 20:00 97.5 77 20 118/77 99 97.5 10/27/17 18:00 103 10/27/17 16:00 98.3 71 19 103/66 98 98.3 10/27/17 13:52 81 121/72 10/27/17 12:00 71 10/27/17 12:00 97.3 64 19 121/72 97 97.3 10/27/17 08:00 97.1 59 18 101/57 99 97.1 10/27/17 08:00 108 10/27/17 06:22 70 141/96 Intake and Output 10/27/17 10/28/17 19:00 07:00 Intake Total 472 ml 236 ml Output Total 450 ml 300 ml Balance 22 ml -64 ml Intake Oral 472 ml 236 ml Output Urine Total 450 ml 300 ml # Voids 2 1 Laboratory Tests 10/27/17 12:10: Sodium Level 142, Potassium Level 3.8, Chloride Level 109H, Carbon Dioxide Level 27, Anion Gap 6, Blood Urea Nitrogen 12, Creatinine 1.1, Estimat Glomerular Filtration Rate > 60, Glucose Level 99, Calcium Level 8.3L, Total Bilirubin 1.3H, Direct Bilirubin 0.7H, Aspartate Amino Transf (AST/SGOT) 48H, Alanine Aminotransferase (ALT/SGPT) 34, Alkaline Phosphatase 93, Total Protein 5.4L, Albumin 2.0L, Globulin 3.4, Albumin/Globulin Ratio 0.6L, Triglycerides Level < 15L, Cholesterol Level 122, LDL Cholesterol 77, HDL Cholesterol 44, Cholesterol/HDL Ratio 2.8L, Vitamin B12 Level 1151H Height (Feet): 5 Height (Inches): 10.00 Weight (Pounds): 153 Objective WDWN NAD clear breath sounds bilaterally without rhonchi or wheeze S1S2 iRR without MRG NABS nontender no HSM no CCE nonfocal FRANCINE SANDOVAL Oct 28, 2017 05:58
[2017-10-28] MEDS: dilTIAZem HCl 60mg tab ORAL SCH ×3 (06:40→21:42)
[2017-10-28] MEDS: Thiamine 100mg tab ORAL SCH (08:51)
[2017-10-28] MEDS: Aspirin EC 81mg tab ORAL SCH (08:51)
[2017-10-28] MEDS: Digoxin 0.125mg tab ORAL SCH (08:52)
--- NOTE | 2017-10-28 11:06 | Neurology Progress Note ---
Interim History Interim History ROS Limited/Unobtainable: No Complaints: feel ok no dizziness Events: stable Objective Physical Exam Last Vital Signs Date Time Temp Pulse Resp B/P (MAP) Pulse Ox O2 Delivery O2 Flow Rate FiO2 10/28/17 08:52 86 10/28/17 08:00 97.4 19 101/60 99 97.4 10/27/17 00:00 Room Air Laboratory Tests Test 10/27/17 12:10 Sodium Level 142 MMOL/L (136-145) Potassium Level 3.8 MMOL/L (3.5-5.1) Chloride Level 109 MMOL/L (98-107) H Carbon Dioxide Level 27 MMOL/L (21-32) Anion Gap 6 mmol/L (5-15) Blood Urea Nitrogen 12 mg/dL (7-18) Creatinine 1.1 MG/DL (0.55-1.30) Estimat Glomerular Filtration Rate > 60 mL/min (>60) Glucose Level 99 MG/DL (74-106) Calcium Level 8.3 MG/DL (8.5-10.1) L Total Bilirubin 1.3 MG/DL (0.2-1.0) H Direct Bilirubin 0.7 MG/DL (0.0-0.3) H Aspartate Amino Transf (AST/SGOT) 48 U/L (15-37) H Alanine Aminotransferase (ALT/SGPT) 34 U/L (12-78) Alkaline Phosphatase 93 U/L (46-116) Total Protein 5.4 G/DL (6.4-8.2) L Albumin 2.0 G/DL (3.4-5.0) L Globulin 3.4 g/dL Albumin/Globulin Ratio 0.6 (1.0-2.7) L Triglycerides Level < 15 MG/DL (30-150) L Cholesterol Level 122 MG/DL (< 200) LDL Cholesterol 77 mg/dL (<100) HDL Cholesterol 44 MG/DL (40-60) Cholesterol/HDL Ratio 2.8 (3.3-4.4) L Vitamin B12 Level 1151 PG/ML (193-986) H General: well developed, well nourished, no acute distress Head: normocophalic, atraumatic Neck: no rigidity EENT: benign Neurologic Exam Mental Status: awake, alert, normal cognition, other - poor historian Speech: normal speech, no dysarthia Language: normal language, no aphasia Cranial Nerve II: fundus normal, visual valenzuela, no papilledema Cranial Nerves III, IV, : PERRLA, EOMI, pupils Cranial Nerve V: normal facial sensations, temporales function normal, masseters function normal, pterygoids function normal Cranial Nerve VII: no facial asymmetry, normal facial expressions Cranial Nerve VIII: no nystagmus Cranial Nerve IX: normal palate elevation, gag response Cranial Nerve X: no voice hoarseness Cranial Nerve XI: SCM symmetric, trapezii function normal Cranial Nerve XII: tongue midline, no tongue atrophy/fasciculations Motor System: normal muscle tone, strength 5/5, no involuntary movement, no muscle wasting Sensory: normal pinprick Coordination: normal finger to nose bilaterally, other Deep Tendon Reflexes: 1+ bicep (L), 1+ bicep (R), 1+ tricep (L), 1+ tricep (R) , 1+ brachioradialis (L), 1+ brachioradialis (R), 1+ knee (L), 1+ knee (R), 1+ ankle (L), 1+ ankle (R) Reflexes: mute plantar (L), mute plantar (R) Gait: other - wabbly Impression/Recommendations Problems: (1) vertigo, confusion, r/o tia r/o labyrintitis (2) Atrial fibrillation with RVR Status: stable Recommendations #[id number] check carotids/check venous duoplex BLE pt/ot placement cont present rx KRISTI GARCIA Oct 28, 2017 11:06
--- NOTE | 2017-10-28 22:15 | Progress Note ---
DATE: 10/28/2017 SUBJECTIVE: The patient is improved, still he is a poor historian, disorganized, Belarusian speaking. MENTAL STATUS EXAMINATION: The patient is alert and oriented times self, place, and situation. Mood is neutral. Affect is constricted. Congruent with mood. Thought process is concrete. Thought content, no suicidal or homicidal ideation. ASSESSMENT: Mood disorder. PLAN: We will continue current medications. Terrence Rosario M.D. DR: Alberto JOB#: [id number] CC:
--- NOTE | 2017-10-28 23:57 | Cardiology Progress Note ---
Assessment/Plan Assessment/Plan 1. Atrial fibrillation, continue rate control with digoxin, only ASA. 2. Acute systolic cardiomyopathy likely due to atrial fibrillation. 3. Severe pulmonary HTN. Subjective Subjective Atrial fibrillation with CVR. Objective Last 24 Hour Vital Signs Date Time Temp Pulse Resp B/P (MAP) Pulse Ox O2 Delivery O2 Flow Rate FiO2 10/28/17 21:42 72 117/60 10/28/17 20:00 66 10/28/17 20:00 98.2 63 19 106/70 98 98.2 10/28/17 16:00 80 10/28/17 16:00 98.2 60 19 128/58 98 98.2 10/28/17 13:14 65 109/72 10/28/17 12:00 97.6 60 19 109/72 100 97.6 10/28/17 12:00 61 10/28/17 08:52 86 10/28/17 08:00 97.4 86 19 101/60 99 97.4 10/28/17 08:00 76 10/28/17 06:40 78 116/74 10/28/17 04:00 70 10/28/17 04:00 97.0 78 17 116/74 99 97.0 10/28/17 04:00 97.0 78 17 116/74 99 97.0 10/28/17 00:00 98.2 80 20 118/92 98 98.2 10/28/17 00:00 76 Intake and Output 10/27/17 10/28/17 19:00 07:00 Intake Total 472 ml 472 ml Output Total 450 ml 600 ml Balance 22 ml -128 ml Intake Oral 472 ml 472 ml Output Urine Total 450 ml 600 ml # Voids 2 2 Objective General Appearance: well appearing, no apparent distress, lethargic, other - Shivering HEENT: normocephalic, atraumatic, PERRL, EOMI Neck: - JVD, no carotid bruit Respiratory: chest non-tender, lungs clear, normal breath sounds Cardiovascular: Irregular rate, rhythm, no murmurs, gallops or rubs. Gastrointestinal: normal bowel sounds, non tender, no mass, no organomegaly, no bruit, non-distended Musculoskeletal: No clubbing edema or cyanosis. DEEDEE CASTANON Oct 28, 2017 23:57
[2017-10-29] VITALS: BP_SYST 108; BP_SYST 133; BP_DIAS 67; BP_DIAS 68
[2017-10-29 04:00] VITALS: BP_SYST 131; BP_SYST 31; BP_DIAS 75
[2017-10-29] MEDS: dilTIAZem HCl 60mg tab ORAL SCH ×2 (05:33→14:20)
[2017-10-29 08:00] VITALS: BP 114/78
[2017-10-29] MEDS: Digoxin 0.125mg tab ORAL SCH (09:03)
[2017-10-29] MEDS: Thiamine 100mg tab ORAL SCH (09:03)
[2017-10-29] MEDS: Aspirin EC 81mg tab ORAL SCH (09:03)
[2017-10-29 12:00] VITALS: BP 105/71
--- NOTE | 2017-10-29 12:37 | General Progress Note ---
Assessment/Plan Assessment/Plan acute encephalopathy afib elevated troponin cardiomyopathy pacemaker cardiomyopathy vertigo PLAN dc to snf Aspirin only rate controlled Subjective Allergies: Coded Allergies: UNABLE TO ASSESS (Unverified , 10/23/17) patient not answering questions Subjective somewhat confused Objective Last 24 Hour Vital Signs Date Time Temp Pulse Resp B/P (MAP) Pulse Ox O2 Delivery O2 Flow Rate FiO2 10/29/17 12:00 97.7 61 18 105/71 99 Room Air 97.7 10/29/17 09:03 83 10/29/17 08:00 74 10/29/17 08:00 97.2 83 22 114/78 98 Room Air 97.2 10/29/17 05:33 70 128/74 10/29/17 04:00 97.2 67 20 131/75 98 Room Air 97.2 10/29/17 04:00 67 10/29/17 00:00 97.8 82 20 133/68 99 Room Air 97.8 10/29/17 00:00 78 10/28/17 21:42 72 117/60 10/28/17 20:00 66 10/28/17 20:00 98.2 63 19 106/70 98 Room Air 98.2 10/28/17 16:00 80 10/28/17 16:00 98.2 60 19 128/58 98 98.2 10/28/17 13:14 65 109/72 Intake and Output 10/28/17 10/29/17 19:00 07:00 Intake Total 870 ml Output Total 1300 ml 600 ml Balance -430 ml -600 ml Intake Oral 720 ml IV Total 150 ml Output Urine Total 1300 ml 600 ml # Voids 3 Height (Feet): 5 Height (Inches): 10.00 Weight (Pounds): 153 Objective WDWN NAD clear breath sounds bilaterally without rhonchi or wheeze S1S2 iRR without MRG NABS nontender no HSM no CCE nonfocal FRANCINE SANDOVAL Oct 29, 2017 12:37
[2017-10-29 14:20] VITALS: BP 105/71
--- NOTE | 2017-10-29 22:00 | Progress Note ---
DATE: 10/29/2017 SUBJECTIVE: The patient is the same. No difference than previous encounter. Continues to be at times agitated disorganized. MENTAL STATUS EXAMINATION: Patient is alert and oriented times self, place. Mood is anxious. Affect is constricted. Congruent mood. Thought process is concrete. Thought content, no suicidal or homicidal ideations. ASSESSMENT: 1. Alcohol dependence. 2. Cognitive impairment. PLAN: We will continue current medications. Provide the patient with supportive therapy and reality orientation. Terrence Rosario M.D. DR: JIM JOB#: [id number] CC:
--- NOTE | 2017-11-01 09:48 | Discharge Summary ---
Discharge Summary Hospital Course Date of Admission Oct 23, 2017 at 06:55 Date of Discharge Oct 29, 2017 at 14:45 Admitting Diagnosis AFIB ALPHONSE Pena is a 56 year old male who was admitted on Oct 23, 2017 at 06: 55 for Atrial Fibrillation Hospital Course dc summary #[id number] Discharge Condition Upon Discharge: stable Discharge Disposition Patient was discharged to [facility] (04) Discharge Diagnoses: Discharge Instructions Discharge Instructions Special Instructions I have been assigned to complete a D/C Summary on this account. I was not involved in the patient management Claudia Marshall NP (Vanchtein) Nov 01, 2017 09:47
--- NOTE | 2017-11-01 23:30 | Discharge Summary 2 SIG ---
DATE OF ADMISSION: 10/23/2017 DATE OF DISCHARGE: 10/29/2017 REASON FOR ADMISSION: 56-year-old male presented to the emergency department with altered mental status. The patient was found sleeping on the street and bystander called paramedics. The patient by himself was unable to provide any information. Upon evaluation, the patient was found to be in atrial fibrillation with rapid ventricular response. No apparent distress, lethargic. Laboratory workup revealed no leukocytosis. Elevated troponin - 0.44. Serum alcohol level was negative. Potassium -3.3. Urine toxicology screen was negative. Urinalysis with no evidence of UTI. CT of the head revealed no acute intracranial pathology, but showed old lacunar infarct in left thalamus. Chest x-ray showed cardiomegaly and mild CHF. The patient was admitted with diagnoses of acute encephalopathy, atrial fibrillation with rapid ventricular response, elevated troponin, and possible acute coronary syndrome. HOSPITAL COURSE: The patient admitted to telemetry floor. Serial troponin were monitored. Fermentologist followed. Echocardiogram revealed ejection fraction of 30% to 35% with right ventricular systolic pressure of 70 consistent with severe pulmonary hypertension and evidence of oucs-lc-fytwhern mitral regurgitation. Acute systolic cardiomyopathy likely due to atrial fibrillation, as per director airport operations. Heart rate was managed with digoxin and Cardizem. No anticoagulation due to the risk of falls. The patient was placed on aspirin. DVT prophylaxis was provided with heparin. Heart rate was eventually controlled. Potassium was replaced. The patient became more awake and coherent. According to director airport operations, levels of troponin were low, with minimal elevation. The patient did not complain of chest pain. Neurologist followed. CT head as mentioned above, did not reveal any acute intracranial pathology but showed evidence of old infarct. Patient was on aspirin. Lipid panel stable. Venous Duplex bilateral lower extremities was negative The patient was working with physical and occupational therapists. Thiamine was added to existing regimen. Neurologist recommended placement to a long term facility. Psychiatrist followed the patient. Psychiatrist diagnosed the patient with alcohol dependency, cognitive impairment and mood disorder. Psychiatric medication regimen was optimized as per psychiatric recommendation. Placement was arranged to long term facility for continuation of care. The patient will need to follow up as outpatient with the director airport operations for further medical management of cardiomyopathy. FINAL DIAGNOSES: 1. Acute encephalopathy. 2. Atrial fibrillation with rapid ventricular response. 3. Elevated troponin likely due to the atrial fibrillation with rapid ventricular response. 4. Acute systolic cardiomyopathy due to atrial fibrillation (ejection fraction 30% to 35%). 5. Severe pulmonary hypertension. 6. Pacemaker. 7. Alcohol dependency. 8. Cognitive impairment 9. Mood disorder DISCHARGE MEDICATIONS: List of medication was sent to accepting facility. DISCHARGE INSTRUCTIONS: The patient was discharged to long term facility for continuation of care. Jeffrey Ac M.D. I have been assigned to dictate discharge summary on this account and I was not involved in the patient's management. Claudia BoltonHudson River Psychiatric Centerclaribel N.P. DR: Pb JOB#: [id number] CC: PATRICIO
--- NOTE | 2017-11-21 22:45 | Consultation ---
DATE OF CONSULTATION: 10/26/2017 CARDIOLOGY CONSULTATION CONSULTING PHYSICIAN: Arsenio Bai M.D. REFERRING PHYSICIAN: Jeffrey Ac M.D. REASON FOR CONSULTATION: Management of atrial fibrillation. HISTORY OF PRESENT ILLNESS: The patient is a very unfortunate 56-year-old gentleman, who was brought in for altered mental status. There was some question about alcohol abuse. At the time of arrival to the hospital, he was shivering and it seems that the patient is homeless. Apparently, the bystander in the street called 911. At the time of evaluation in the emergency department, he was confused, agitated, and not able to provide any history. Initial blood pressure was 104/57 and heart rate of 120. Initial workup in the emergency department showed atrial fibrillation with rapid ventricular response on 12-lead electrocardiogram and was started on Cardizem, which controlled the rate. A CT of head was negative in the emergency department. His troponin I level was elevated at 0.44. He was admitted to the hospital with atrial fibrillation and elevation of troponin I level. Cardiology consultation was made at the request of Dr. Ac. PAST MEDICAL HISTORY: 1. Atrial fibrillation. 2. Status post pacemaker implantation. 3. History of alcohol abuse. 4. Homeless. MEDICATIONS: List of medications included none. SOCIAL HISTORY: He uses alcohol. He lives with his two sisters. He is a nonsmoker. Denies any drug use. He works as a food quality tester. FAMILY HISTORY: No premature coronary artery disease in first-degree relatives. REVIEW OF SYSTEMS: A 12-system review done essentially negative except what mentioned in the history of present illness. PHYSICAL EXAMINATION: VITAL SIGNS: Blood pressure was 104/57, pulse of 120, respirations of 18, O2 saturation 99% on room air, and temperature 97.6 degrees Fahrenheit. GENERAL: The patient is a very unfortunate 56-year-old gentleman, who appears to be lethargic and shivering. HEENT: Atraumatic and normocephalic. ENT: Pupils are equal, round, and reactive to light and accommodation. Extraocular muscles intact. NECK: JVP less than 5 cm. No carotid bruit. Carotid upstrokes 2+ bilaterally. CARDIOVASCULAR: Normal S1 and S2. Irregularly irregular rhythm. Tachycardic. There is a 2/6 mid systolic murmur at the left sternal border. LUNGS: Clear to auscultation bilaterally. ABDOMEN: Soft, nontender, and nondistended. No hepatosplenomegaly. Positive bowel sounds. EXTREMITIES: No evidence of edema, clubbing, or cyanosis. LABORATORY FINDINGS: WBC is 3.8, hemoglobin 11.9, hematocrit 34.3, and platelet count is 145,000. Sodium is 140, potassium is 3.3, chloride 105, bicarbonate 24, BUN of 25, creatinine 1.5, glucose 95, and calcium is 8.6. Troponin I was 0.44. Second troponin was 0.439. INR was 1.2. Urine toxicology showed negative. CT of head was negative. Chest x-ray showed cardiomegaly, presence of a pacemaker, mild prominence of pulmonary vascularity, possible mild congestive heart failure. A 12-lead electrocardiogram, atrial fibrillation at a rate of [address] and T-wave abnormalities. ASSESSMENT AND PLAN: The patient is a very unfortunate, 56-year-old gentleman, seen in Cardiology consultation at the request of Dr. Ac. 1. Atrial fibrillation. We will continue rate control with digoxin. Given the patient's anemia, we will continue with only aspirin therapy. His OSKAR-VASc score considered to be 1. 2. History of alcohol abuse. 3. Possible mild congestive heart failure per chest x-ray. We would like, however, to proceed with 2D echocardiography. Further diagnosis and therapeutic decision will be based on results of 2D echocardiography. I would like to thank Dr. Ac for the courtesy of this consultation. Arsenio Bai M.D. DR: Lali JOB#: [id number] CC:
== END 2017-10-29 14:45 | DRG 201 ==
LOC: EDBD 03:06 → EMR 05:51 → EDBEDREQ 06:28 → EDBD 06:55 → 2E 06:55
DX: I48.91 Unspecified atrial fibrillation (principal); G93.40 Encephalopathy, unspecified; I42.9 Cardiomyopathy, unspecified; I27.20 Pulmonary hypertension, unspecified; R42 Dizziness and giddiness; I50.9 Heart failure, unspecified; F39 Unspecified mood [affective] disorder; G31.84 Mild cognitive impairment of uncertain or unknown etiology; F10.20 Alcohol dependence, uncomplicated; F32.9 Major depressive disorder, single episode, unspecified; Z95.0 Presence of cardiac pacemaker
CPT/HCPCS: 36415; 70450; 71045; 80048; 80053; 80061; 80307; 80329; 81001; 82248; 82607; 82962; 84484; 85025; 85610; 87081; 93005; 93306; 93880; 93970; 99285; J8499